=== PATIENT | male | born 1970 | race Caucasian/White ===

== ENCOUNTER 2019-05-26 20:33 | Emergency (ER) | payer OTHER ==
[2019-05-26 20:52] VITALS: BP 124/88
[2019-05-26] MEDS ORDERED: Tetan/Diph/Pertus SYR(Tdap)* 0.5 ML SYR(BOOSTRIX) use SYR IM ONE (21:13)
[2019-05-26] MEDS ORDERED: Cephalexin CAP* 500 MG PO ONE (21:13)
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
== END 2019-05-26 21:51 | disposition home or self-care (01) ==
LOC: UCEAST 20:33
DX: S91.331A Puncture wound without foreign body, right foot, initial encounter (principal); W25.XXXA Contact with sharp glass, initial encounter; Y92.9 Unspecified place or not applicable
CPT/HCPCS: 90471; 90715; 99212; A9270-GY; G0463

== ENCOUNTER 2019-10-30 18:49 | Emergency (ER) | payer OTHER ==
[2019-10-30 19:00] VITALS: BP 143/89
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
[2019-10-30] MEDS ORDERED: Acyclovir* 200 MG CAP ONE (19:31)
[2019-10-30] MEDS ORDERED: Acyclovir* 200 MG CAP PO ONE (19:46)
== END 2019-10-30 20:05 | disposition home or self-care (01) ==
LOC: UCEAST 18:49
DX: B02.9 Zoster without complications (principal); R53.83 Other fatigue
CPT/HCPCS: 99212; A9270-GY; G0463